=== PATIENT | female | born 1975 | race Caucasian/White ===

== ENCOUNTER 2017-03-01 16:02 | Emergency (ER) | payer MEDICAID ==
[2017-03-01] MEDS ORDERED: Ketorolac 30 MG/ML SDV IVPUSH ONE (16:38)
--- NOTE | 2017-03-01 16:38 | EDM.PDOC ---
ED HPI GENERAL MEDICAL PROBLEM - General Chief Complaint: General Stated Complaint: FLU LIKE SYMPTOMS Time Seen by Provider: 03/01/17 16:14 Source of Information: Reports: Patient History Limitations: Reports: No Limitations - History of Present Illness INITIAL COMMENTS - FREE TEXT/NARRATIVE: HISTORY AND PHYSICAL: History of present illness: Patient is a 41-year-old female who presents to the emergency room complaints of flulike symptoms 2 weeks. She states she did see her primary care provider about 1 month ago who did prescribe antibiotics for a "right lung infection". States she did feel fine a week after completing her antibiotics, but within the last week her symptoms have returned. Her main concern today is that she is fatigued, body aches, and "feeling run down". States she is eating and drinking appropriately. Dr. Ang has ordered her a Holter monitor which she had removed on . This was ordered due to the fact that she has been having palpitations on and off for the last month and a half. States that she recorded up to 50 episodes per day. States "I don't know if it's because I'm so run down, but have been having more palpitations recently". Denies any fever, chills, chest pain, shortness of breath, abdominal pain, nausea, vomiting or diarrhea. Has received the [id number] influenza vaccine. Currently on menses, denies any possibility of . Review of systems: As per history of present illness and below otherwise all systems reviewed and negative. Past medical history: As per history of present illness and as reviewed below otherwise noncontributory. Surgical history: As per history of present illness and as reviewed below otherwise noncontributory. Social history: No reported history of drug or alcohol abuse. Family history: As per history of present illness and as reviewed below otherwise noncontributory. Physical exam: Gen.: Well-developed and well-nourished 41-year-old female. Alert and oriented. Appears nontoxic and in no acute distress. HEENT: Atraumatic, normocephalic, pupils reactive, negative for conjunctival pallor or scleral icterus, mucous membranes slightly dry/tacky, throat clear, neck supple, nontender, trachea midline. Lungs: Clear to auscultation, breath sounds equal bilaterally, chest nontender. Heart: S1S2, regular rate and rhythm with no overt murmurs. Abdomen: Soft, nondistended, nontender. Negative for masses or hepatosplenomegaly. Negative for costovertebral tenderness. Pelvis: Stable nontender. Genitourinary: Deferred. Rectal: Deferred. Extremities: Atraumatic, moves all extremities per self, negative for cords or calf pain. Neurovascular unremarkable. Neuro: Awake, alert, oriented. Cranial nerves II through XII unremarkable. Cerebellum unremarkable. Motor and sensory unremarkable throughout. Exam nonfocal. Lab results and x-ray are within normal limits. Did discuss with the patient to do supportive care at home as this is likely viral. Tylenol and/or ibuprofen as needed for pain management. Encourage fluids to prevent dehydration. Get plenty of rest. If symptoms continue please follow-up with your primary caregiver. Patient voices understanding and is agreeable to plan of care. She denies any further questions at this time. Diagnostics: CBC, CMP, Monospot, influenza, tsh, ekg, chest 1 view Therapeutics: IV fluid, Toradol Impression: Viral illness Plan: 1. All lab results and x-ray reading were normal. Symptoms are likely viral. Please continue with supportive care: Tylenol and or ibuprofen as needed for pain management. Encourage fluids to prevent dehydration. Get plenty of rest. 2. Follow-up with your primary caregiver in the next 1-2 days. Return to the ED as needed and as discussed. Definitive disposition and diagnosis as appropriate pending reevaluation and review of above. Duration: Week(s): - Related Data Allergies Allergy/AdvReac Type Severity Reaction Status Date / Time Sulfa (Sulfonamide Allergy Hives Verified 02/07/15 18:43 Antibiotics) Home Meds: Home Meds . [No Known Home Meds] 03/01/17 [History] Past Medical History - Past Health History Medical/Surgical History: Denies Medical/Surgical History Social & Family History - Tobacco Use Smoking Status *Q: Former Smoker Years of Tobacco use: 20 Used Tobacco, but Quit: Yes Month Tobacco Last Used: 10/2013 Second Hand Smoke Exposure: No - Recreational Drug Use Recreational Drug Use: No ED ROS GENERAL - Review of Systems Review Of Systems: See Below ED EXAM, GENERAL - Physical Exam Exam: See Below (See dictation) EKG INTERPRETATION EKG Date: 03/01/17 Rhythm: NSR Comparison: NA - No Prior EKG EKG Interpretation Comments: As reviewed by me and Dr. Farah. Normal sinus rhythm. Course - Vital Signs Last Recorded V/S: Last Vital Signs Temp 98.6 F 03/01/17 16:21 Pulse 70 03/01/17 16:58 Resp 18 03/01/17 16:58 BP 107/62 03/01/17 16:58 Pulse Ox 97 03/01/17 16:21 - Orders/Labs/Meds Orders: Active Orders 24 hr Category Date Time Status EKG Documentation Completion [RC] STAT Care 03/01/17 16:38 Active Chest 1V Frontal [CR] Stat Exams 03/01/17 16:38 Taken Sodium Chloride 0.9% [Normal Saline] 1,000 ml Med 03/01/17 16:45 Active IV ASDIRECTED Medication Orders Sodium Chloride (Normal Saline) 1,000 mls @ 999 mls/hr IV ASDIRECTED EVER Last Admin: 03/01/17 16:50 Dose: 999 mls/hr Labs: Laboratory Tests 03/01/17 03/01/17 03/01/17 Range/Units 16:45 16:45 16:45 WBC 7.96 (4.0-11.0) K/uL RBC 3.95 L (4.30-5.90) M/uL Hgb 12.6 (12.0-16.0) g/dL Hct 37.6 (36.0-46.0) % MCV 95.2 (80.0-98.0) fL MCH 31.9 (27.0-32.0) pg MCHC 33.5 (31.0-37.0) g/dL RDW Std Deviation 42.6 (28.0-62.0) fl RDW Coeff of Katie 12 (11.0-15.0) % Plt Count 284 (150-400) K/uL MPV 10.70 (7.40-12.00) fL Neut % (Auto) 54.1 (48.0-80.0) % Lymph % (Auto) 33.7 (16.0-40.0) % [place] % (Auto) 8.5 (0.0-15.0) % Eos % (Auto) 3.4 (0.0-7.0) % Baso % (Auto) 0.3 (0.0-1.5) % Neut # (Auto) 4.3 (1.4-5.7) K/uL Lymph # (Auto) 2.7 H (0.6-2.4) K/uL [place] # (Auto) 0.7 (0.0-0.8) K/uL Eos # (Auto) 0.3 (0.0-0.7) K/uL Baso # (Auto) 0.0 (0.0-0.1) K/uL Nucleated RBC % 0.0 /100WBC Nucleated RBCs # 0 K/uL Sodium 139 (136-146) mmol/L Potassium 4.0 (3.5-5.1) mmol/L Chloride 107 (98-110) mmol/L Carbon Dioxide 23 (21-31) mmol/L BUN 21 (6.0-23.0) mg/dL Creatinine 0.8 (0.6-1.5) mg/dL Est Cr Clr Drug Dosing 77.33 mL/min Estimated GFR (MDRD) > 60.0 ml/min Glucose 95 (60-110) mg/dL Calcium 9.2 (8.8-10.8) mg/dL Total Bilirubin 0.4 (0.1-1.5) mg/dL AST 18 (5-40) IU/L ALT 19 (8-54) IU/L Alkaline Phosphatase 67 (40-150) Total Protein 7.1 (6.0-8.0) g/dL Albumin 4.0 (3.5-5.0) g/dL Globulin 3.1 (2.0-3.5) g/dL Albumin/Globulin Ratio 1.3 (1.3-2.8) TSH 3rd Generation 0.50 (0.47-5.0) uIU/mL Monoscreen NEGATIVE (NEG) Meds: Medications Generic Name Dose Route Start Last Admin Trade Name Freq PRN Reason Stop Dose Admin Sodium Chloride 1,000 mls @ 999 mls/hr 03/01/17 16:45 03/01/17 16:50 Normal Saline IV 999 mls/hr ASDIRECTED EVER Administration Discontinued Medications Generic Name Dose Route Start Last Admin Trade Name Freq PRN Reason Stop Dose Admin Ketorolac Tromethamine 30 mg 03/01/17 16:38 03/01/17 16:51 Toradol IVPUSH 03/01/17 16:39 30 mg ONETIME ONE Administration Departure - Departure Time of Disposition: 18:03 Disposition: Home, Self-Care 01 Clinical Impression: Viral illness - Discharge Information Referrals: Michelle Ang MD [Primary Care Provider] - Forms: ED Department Discharge Additional Instructions: My general discharge The following information is given to patients seen in the emergency department who are being discharged to home. This information is to outline your options for follow-up care. We provide all patients seen in our emergency department with a follow-up referral. The need for follow-up, as well as the timing and circumstances, are variable depending upon the specifics of your emergency department visit. If you don't have a primary care physician on staff, we will provide you with a referral. We always advise you to contact your personal physician following an emergency department visit to inform them of the circumstance of the visit and for follow-up with them and/or the need for any referrals to a consulting specialist. The emergency department will also refer you to a specialist when appropriate. This referral assures that you have the opportunity for follow-up care with a specialist. All of these measure are taken in an effort to provide you with optimal care, which includes your follow-up. Under all circumstances we always encourage you to contact your private physician who remains a resource for coordinating your care. When calling for follow-up care, please make the office aware that this follow-up is from your recent emergency room visit. If for any reason you are refused follow-up, please contact the Emergency Department at and asked to speak to the emergency department charge nurse. Primary Care [address] [place] [id number] 1. All lab results and x-ray reading were normal. Symptoms are likely viral. Please continue with supportive care: Tylenol and or ibuprofen as needed for pain management. Encourage fluids to prevent dehydration. Get plenty of rest. 2. Follow-up with your primary caregiver in the next 1-2 days. Return to the ED as needed and as discussed. - My Orders Last 24 Hours: My Active Orders 03/01/17 16:38 EKG Documentation Completion [RC] STAT Chest 1V Frontal [CR] Stat 03/01/17 16:45 Sodium Chloride 0.9% [Normal Saline] 1,000 ml IV ASDIRECTED - Assessment/Plan Last 24 Hours: My Active Orders 03/01/17 16:38 EKG Documentation Completion [RC] STAT Chest 1V Frontal [CR] Stat 03/01/17 16:45 Sodium Chloride 0.9% [Normal Saline] 1,000 ml IV ASDIRECTED
[2017-03-01] MEDS ORDERED: Sodium Chloride 0.9% 1,000 ML IV SCH (16:45)
[2017-03-01 17:03] VITALS: BP 107/62
[2017-03-01 17:15] LABS: CHLORIDE,CL 107 mmol/L (98-110); SODIUM,NA 139 mmol/L (136-146)
--- NOTE | 2017-03-02 10:56 | CR ---
EXAM DATE: 03/01/17 PATIENT'S AGE: 41 Patient: BRUNA FISH Facility: [place], [place] Site . Site : [id number] Study: XRay Chest [id number]/[id number] 5:47:28 PM Ordering Physician: Doctor Martinez Final Report: INDICATION: Dry cough, fatigue, weakness, congestion, shortness of breath x2 days TECHNIQUE: Chest 1 view. COMPARISON: None FINDINGS: Cardiovascular and mediastinum: Heart size and vasculature are normal in caliber and appearance. Mediastinum is within normal limits. Lungs and pleural space: Lungs are clear. No sign of infiltrate or mass. No sign of pleural effusion. No pneumothorax. Bones and soft tissues: No significant findings. IMPRESSION: Unremarkable chest. No evidence for pneumonia. Dictated by Geovanni Damico MD @ Mar 01 2017 6:01PM (Electronic Signature) Report Signed by Proxy. NADINE
== END 2017-03-01 18:20 | disposition home or self-care (01) ==
LOC: MW.ED 16:02
DX: B34.9 Viral infection, unspecified (principal); Z88.2 Allergy status to sulfonamides; Z87.891 Personal history of nicotine dependence
CPT/HCPCS: 36415; 71010; 80053; 84443; 85025; 86308; 87804; 93005; 96361; 96374; 99284; J1885; J7040

== ENCOUNTER 2017-12-22 19:05 | Emergency (ER) | payer MEDICAID ==
--- NOTE | 2017-12-22 19:45 | EDM.PDOC ---
ED HPI GENERAL MEDICAL PROBLEM - General Chief Complaint: General Stated Complaint: PT HEAD CONGESTED Time Seen by Provider: 12/22/17 19:07 Source of Information: Reports: Patient History Limitations: Reports: No Limitations - History of Present Illness INITIAL COMMENTS - FREE TEXT/NARRATIVE: HISTORY AND PHYSICAL: History of present illness: Patient is a 42-year-old female who presents to the emergency room with complaints of bilateral ear pain, throat pain and sinus pressure/pain 5-6 days. She states she has tried multiple [id number] products and has not found any relief. She has an intermittent chills and a subjective fever. Chest pain, shortness of breath, cough. Denies any abdominal pain, nausea, vomiting, diarrhea or constipation. She has been eating and drinking appropriately. Review of systems: As per history of present illness and below otherwise all systems reviewed and negative. Past medical history: As per history of present illness and as reviewed below otherwise noncontributory. Surgical history: As per history of present illness and as reviewed below otherwise noncontributory. Social history: No reported history of drug or alcohol abuse. Family history: As per history of present illness and as reviewed below otherwise noncontributory. Physical exam: General: Well-developed and well-nourished 42-year-old female. Alert and oriented. Nontoxic appearing and in no acute distress. HEENT: Atraumatic, normocephalic, pupils equal and reactive bilaterally, negative for conjunctival pallor or scleral icterus, frontal maxillary sinus pressure and tenderness to palpation bilaterally, TMs normal bilaterally, mucous membranes moist, throat clear, neck supple, nontender, trachea midline. No drooling or trismus noted. No meningeal signs Lungs: Clear to auscultation, breath sounds equal bilaterally, chest nontender. Heart: S1S2, regular rate and rhythm without overt murmur Abdomen: Soft, nondistended, nontender. Negative for masses or hepatosplenomegaly. Negative for costovertebral tenderness. Pelvis: Stable nontender. Genitourinary: Deferred. Rectal: Deferred. Skin: Intact, warm, dry. No lesions or rashes noted. Extremities: Atraumatic, negative for cords or calf pain. Neurovascular unremarkable. Neuro: Awake, alert, oriented. Cranial nerves II through XII unremarkable. Cerebellum unremarkable. Motor and sensory unremarkable throughout. Exam nonfocal. Notes: Due to the patient's physical examination and longevity of symptoms I will treat her with Augmentin. Supportive care measures were reviewed and discussed. She voices understanding and is agreeable to plan of care. Denies any further questions or concerns at this time. Diagnostics: None Therapeutics: None Prescription: Augmentin Impression: Sinusitis Plan: Please take your medications as prescribed Follow-up with your primary caregiver in the next 1-2 days. Return to the ED as needed and as discussed. Definitive disposition and diagnosis as appropriate pending reevaluation and review of above. body Pain Score (Numeric/FACES): 6 - Related Data Allergies Allergy/AdvReac Type Severity Reaction Status Date / Time Sulfa (Sulfonamide Allergy Hives Verified 12/22/17 19:17 Antibiotics) Home Meds: Home Meds Amoxicillin/Clavulanate K [Augmentin 875-125 MG] 1 tab PO BID 10 Days #20 tablet 12/22/17 [Rx] Codeine/Promethazine [Phenergan with Codeine] 5 ml PO Q6HR PRN #1 bottle [Rx] Past Medical History - Past Health History Medical/Surgical History: Denies Medical/Surgical History Social & Family History - Family History Family Medical History: Noncontributory - Tobacco Use Smoking Status *Q: Never Smoker - Caffeine Use Caffeine Use: Reports: Coffee, Soda - Recreational Drug Use Recreational Drug Use: No ED ROS GENERAL - Review of Systems Review Of Systems: ROS reveals no pertinent complaints other than HPI. ED EXAM, GENERAL - Physical Exam Exam: See Below (See dictation) Course - Vital Signs Last Recorded V/S: Last Vital Signs Temp 97.7 F 12/22/17 19:05 Pulse 68 12/22/17 19:05 Resp 18 12/22/17 19:05 BP 122/68 12/22/17 19:05 Pulse Ox 99 12/22/17 19:05 Departure - Departure Time of Disposition: 19:44 Disposition: Home, Self-Care 01 Clinical Impression: Sinusitis Qualifiers: Sinusitis location: maxillary Chronicity: acute Recurrence: non-recurrent Qualified Code(s): J01.00 - Acute maxillary sinusitis, unspecified - Discharge Information Prescriptions: Codeine/Promethazine [Phenergan with Codeine] 5 ml PO Q6HR PRN #1 bottle PRN Reason: Pain Amoxicillin/Clavulanate K [Augmentin 875-125 MG] 1 tab PO BID 10 Days #20 tablet Instructions: Sinusitis, Adult, [id number] Referrals: PCP,None [Primary Care Provider] - Forms: ED Department Discharge Additional Instructions: The following information is given to patients seen in the emergency department who are being discharged to home. This information is to outline your options for follow-up care. We provide all patients seen in our emergency department with a follow-up referral. The need for follow-up, as well as the timing and circumstances, are variable depending upon the specifics of your emergency department visit. If you don't have a primary care physician on staff, we will provide you with a referral. We always advise you to contact your personal physician following an emergency department visit to inform them of the circumstance of the visit and for follow-up with them and/or the need for any referrals to a consulting specialist. The emergency department will also refer you to a specialist when appropriate. This referral assures that you have the opportunity for follow-up care with a specialist. All of these measure are taken in an effort to provide you with optimal care, which includes your follow-up. Under all circumstances we always encourage you to contact your private physician who remains a resource for coordinating your care. When calling for follow-up care, please make the office aware that this follow-up is from your recent emergency room visit. If for any reason you are refused follow-up, please contact the [facility] Emergency Department at and asked to speak to the emergency department charge nurse. [facility] [address] [place] [id number] Please take your medications as prescribed Follow-up with your primary caregiver in the next 1-2 days. Return to the ED as needed and as discussed.
[2017-12-22 20:38] VITALS: BP 120/64
== END 2017-12-22 19:50 | disposition home or self-care (01) ==
LOC: MW.ED 19:05
DX: J01.00 Acute maxillary sinusitis, unspecified (principal); Z88.2 Allergy status to sulfonamides
CPT/HCPCS: 99282; 99283

== ENCOUNTER 2018-05-04 19:01 | Emergency (ER) | payer SELFPAY ==
--- NOTE | 2018-05-04 20:01 | EDM.PDOC ---
ED HPI GENERAL MEDICAL PROBLEM - General Chief Complaint: General Stated Complaint: PT HAS BODY PAIN Time Seen by Provider: 05/04/18 19:27 Source of Information: Reports: Patient History Limitations: Reports: No Limitations - History of Present Illness INITIAL COMMENTS - FREE TEXT/NARRATIVE: HISTORY AND PHYSICAL: History of present illness: Patient is a 42-year-old female who presents to the emergency room today with a week long complaint of sinus pain, sore throat, ear pain, headache, and body aches. Patient states that 3-4 days ago she went to an outpatient clinic and was given Zpak has been taking this regularly without improvement of symptoms. Patient states that when she went into the clinic they did not perform any tests that she had a sinus infection. Patient has also been using Flonase for her symptoms without relief. Patient denies fever, chills, shortness of breath, difficulties breathing, cough , chest pain, vomiting, change in bowel habits, or any other GI or symptoms. Patient denies any health history. Review of systems: As per history of present illness and below otherwise all systems reviewed and negative. Past medical history: As per history of present illness and as reviewed below otherwise noncontributory. Surgical history: As per history of present illness and as reviewed below otherwise noncontributory. Social history: See social history for further information Family history: As per history of present illness and as reviewed below otherwise noncontributory. Physical exam: General: Patient is alert, oriented, and in no acute distress. She is sitting comfortably on exam table. HEENT: Atraumatic, normocephalic, pupils equal and reactive bilaterally, negative for conjunctival pallor or scleral icterus, mucous membranes moist, TMs normal bilaterally but patient expresses moderate amount of pain during ear exam, throat is mildly erythematous without exudate, neck supple, nontender, trachea midline. No drooling or trismus noted. Mild pain to palpation of the maxillary sinuses bilat. No meningeal signs. No hot potato voice noted. Lungs: Clear to auscultation, breath sounds equal bilaterally, chest nontender. Heart: S1S2, regular rate and rhythm without overt murmur Abdomen: Soft, nondistended, nontender. Negative for masses or hepatosplenomegaly. Negative for costovertebral tenderness. Pelvis: Stable nontender. Genitourinary: Deferred. Rectal: Deferred. Skin: Intact, warm, dry. No lesions or rashes noted. Extremities: Atraumatic, negative for cords or calf pain. Neurovascular unremarkable. Neuro: Awake, alert, oriented. Cranial nerves II through XII unremarkable. Cerebellum unremarkable. Motor and sensory unremarkable throughout. Exam nonfocal. Notes: On exam today patient does have a mildly erythematous oropharynx and mild pain to palpation of the maxillary sinuses. Her vitals today are reassuring. Strep and influenza test are negative today. Patient has been doing a Z-Virgil for sinus infection. We'll switch antibiotics to Augmentin for her proper treatment of sinus infection. Supportive care measures were reviewed and discussed. She voices understanding and is agreeable to plan of care. Denies any further questions or concerns at this time. Diagnostics: Strep, influenza, Therapeutics: None Prescription: Augmentin Impression: Acute sinusitis Plan: 1. Standard contact precautions (covering mouth while coughing, avoid sharing drinking cups and eating utensils). Please make sure you're doing good handwashing as this is contagious. 2. Please stop the azithromycin as we discussed and start the Augmentin. 3. Continue to use Flonase [id number]. 4. Supportive care measures such as Tylenol and/or ibuprofen for pain and fever management. Encourage small frequent sips of fluids to prevent dehydration. 5. Follow-up with your primary care provider in the next 1-2 days. Return to the ED as needed and as discussed. Definitive disposition and diagnosis as appropriate pending reevaluation and review of above. head and neck Pain Score (Numeric/FACES): 7 - Related Data Allergies Allergy/AdvReac Type Severity Reaction Status Date / Time Sulfa (Sulfonamide Allergy Hives Verified 02/17/18 13:28 Antibiotics) Home Meds: Home Meds Amoxicillin/Clavulanate K [Augmentin 875-125 MG] 1 tab PO BID 10 Days #20 tablet 05/04/18 [Rx] Past Medical History - Past Health History Medical/Surgical History: Denies Medical/Surgical History - Infectious Disease History Infectious Disease History: Reports: Chicken Pox Social & Family History - Family History Family Medical History: Noncontributory - Caffeine Use Caffeine Use: Reports: Coffee, Soda, Tea ED ROS GENERAL - Review of Systems Review Of Systems: ROS reveals no pertinent complaints other than HPI. ED EXAM, GENERAL - Physical Exam Exam: See Below (see Dictation) Course - Vital Signs Last Recorded V/S: Last Vital Signs Temp 97.5 F 05/04/18 19:46 Pulse 81 05/04/18 19:46 Resp 18 05/04/18 19:46 BP 124/69 05/04/18 19:46 Pulse Ox 98 05/04/18 19:46 - Orders/Labs/Meds Orders: Active Orders 24 hr Category Date Time Status CULTURE STREP A CONFIRMATION [] Stat Lab 05/04/18 20:07 Results STREP SCRN A RAPID W CULT CONF [] Stat Lab 05/04/18 20:01 Ordered Departure - Departure Time of Disposition: 20:40 Disposition: Home, Self-Care 01 Clinical Impression: Acute sinusitis Qualifiers: Sinusitis location: maxillary Recurrence: not specified as recurrent Qualified Code(s): J01.00 - Acute maxillary sinusitis, unspecified - Discharge Information Prescriptions: Amoxicillin/Clavulanate K [Augmentin 875-125 MG] 1 tab PO BID 10 Days #20 tablet Instructions: Sinusitis, Adult, [id number] Referrals: PCP,None [Primary Care Provider] - Forms: ED Department Discharge Additional Instructions: The following information is given to patients seen in the emergency department who are being discharged to home. This information is to outline your options for follow-up care. We provide all patients seen in our emergency department with a follow-up referral. The need for follow-up, as well as the timing and circumstances, are variable depending upon the specifics of your emergency department visit. If you don't have a primary care physician on staff, we will provide you with a referral. We always advise you to contact your personal physician following an emergency department visit to inform them of the circumstance of the visit and for follow-up with them and/or the need for any referrals to a consulting specialist. The emergency department will also refer you to a specialist when appropriate. This referral assures that you have the opportunity for follow-up care with a specialist. All of these measure are taken in an effort to provide you with optimal care, which includes your follow-up. Under all circumstances we always encourage you to contact your private physician who remains a resource for coordinating your care. When calling for follow-up care, please make the office aware that this follow-up is from your recent emergency room visit. If for any reason you are refused follow-up, please contact the [facility] Emergency Department at and asked to speak to the emergency department charge nurse. [facility] [address] [place] [address] [address] 1. Standard contact precautions (covering mouth while coughing, avoid sharing drinking cups and eating utensils). Please make sure you're doing good handwashing as this is contagious. 2. Please stop the azithromycin as we discussed and start the Augmentin. 3. Continue to use Flonase [id number]. 4. Supportive care measures such as Tylenol and/or ibuprofen for pain and fever management. Encourage small frequent sips of fluids to prevent dehydration. 5. Follow-up with your primary care provider in the next 1-2 days. Return to the ED as needed and as discussed. - My Orders Last 24 Hours: My Active Orders 05/04/18 20:01 STREP SCRN A RAPID W CULT CONF [RM] Stat 05/04/18 20:07 CULTURE STREP A CONFIRMATION [] Stat - Assessment/Plan Last 24 Hours: My Active Orders 05/04/18 20:01 STREP SCRN A RAPID W CULT CONF [RM] Stat 05/04/18 20:07 CULTURE STREP A CONFIRMATION [] Stat
[2018-05-04 23:12] VITALS: BP 116/47
== END 2018-05-04 21:09 | disposition home or self-care (01) ==
LOC: MW.ED 19:01
DX: J01.00 Acute maxillary sinusitis, unspecified (principal); Z88.2 Allergy status to sulfonamides
CPT/HCPCS: 87081; 87804; 87880-QW; 99283

== ENCOUNTER 2018-09-25 21:23 | Emergency (ER) | payer MEDICAID, SELFPAY ==
--- NOTE | 2018-09-25 22:27 | EDM.PDOC ---
ED HPI GENERAL MEDICAL PROBLEM - General Chief Complaint: Wound Recheck Stated Complaint: PT HAS STOMACH PAIN Time Seen by Provider: 09/25/18 21:55 Source of Information: Reports: Patient History Limitations: Reports: No Limitations - History of Present Illness INITIAL COMMENTS - FREE TEXT/NARRATIVE: HISTORY AND PHYSICAL: History of present illness: Patient is a 42-year-old female presents to the ED today with concern of redness and drainage from an incision site just below her umbilicus. Patient states she had a bilateral tubal ligation for sterilization purposes done approximately one month ago by Dr. Proctor. Patient states starting yesterday she had noticed some redness of the incision that is below her umbilicus. Patient states starting today it started to drain pus. Patient states she does have abdominal pain which is worse when she is moving and better when she is at rest. Patient denies fever, chills, chest pain, shortness of breath, or cough. Denies headache, neck stiff ness, change in vision, syncope, or near syncope. Denies nausea, vomiting, diarrhea, constipation, or dysuria. Has not noted any blood in urine or stool. Patient has been eating and drinking appropriately. Review of systems: As per history of present illness and below otherwise all systems reviewed and negative. Past medical history: As per history of present illness and as reviewed below otherwise noncontributory. Surgical history: As per history of present illness and as reviewed below otherwise noncontributory. Social history: See social history for further information Family history: As per history of present illness and as reviewed below otherwise noncontributory. Physical exam: General: Patient is alert, oriented, and in no acute distress. Patient sitting comfortably on exam table. HEENT: Atraumatic, normocephalic, pupils equal and reactive bilaterally, negative for conjunctival pallor or scleral icterus, mucous membranes moist, TMs normal bilaterally, throat clear, neck supple, nontender, trachea midline. No drooling or trismus noted. No meningeal signs. No hot potato voice noted. Lungs: Clear to auscultation, breath sounds equal bilaterally, chest nontender. Heart: S1S2, regular rate and rhythm without overt murmur Abdomen: Soft, nondistended. Negative for masses or hepatosplenomegaly. Negative for costovertebral tenderness. There is an incision just inferior to the umbilicus that has a 2cm circular area of erythema surrounding with savanna pus drainage. This area is moderately painful to palpation. Other incision sites appear non infected and healing appropriately. Pelvis: Stable nontender. Genitourinary: Deferred. Rectal: Deferred. Skin: Intact, warm, dry. No lesions or rashes noted. Extremities: Atraumatic, negative for cords or calf pain. Neurovascular unremarkable. Neuro: Awake, alert, oriented. Cranial nerves II through XII unremarkable. Cerebellum unremarkable. Motor and sensory unremarkable throughout. Exam nonfocal. Notes: Dr. Yandel Pinedo, OBGYN television service engineer for [facility], was consulted on patient, per her request patient is to be placed on amoxicillin and to call the clinic tomorrow for follow-up with Dr. Proctor. Discussed this with patient. Voices understanding and is agreeable to plan of care. Denies any further questions or concerns at this time. Diagnostics: CBC, CMP, UA, Abd/Pelvic CT, wound culture Therapeutics: None Prescription: Amoxicillin (Per Dr. Humphries Request) Impression: Localized infection of surgical site incision Plan: 1. Take medication as prescribed. You can alternate ibuprofen and Tylenol as checked her for pain and discomfort. 2. Call [facility] in the morning to schedule follow-up with Dr. Proctor. Number has been provided for you above. 3. Return to the ED as needed and as discussed. Definitive disposition and diagnosis as appropriate pending reevaluation and review of above. - Related Data Allergies Allergy/AdvReac Type Severity Reaction Status Date / Time Sulfa (Sulfonamide Allergy Hives Verified 09/25/18 21:30 Antibiotics) Home Meds: Home Meds Multivitamin [Multivitamins] 1 tab PO DAILY 09/25/18 [History] Past Medical History - Past Health History Medical/Surgical History: Denies Medical/Surgical History [employer] History: Reports: Endocrine/Metabolic History: Reports: Obesity/BMI 30+ - Infectious Disease History Infectious Disease History: Reports: Chicken Pox - Past Surgical History HEENT Surgical History: Reports: Tonsillectomy Female Surgical History: Reports: Section, Salpingo-Oophorectomy Other Female Surgeries/Procedures: Laparoscopy Social & Family History - Family History Family Medical History: Noncontributory - Tobacco Use Smoking Status *Q: Current Every Day Smoker Years of Tobacco use: 8 Packs/Tins Daily: 1 - Caffeine Use Caffeine Use: Reports: Coffee, Soda, Tea - Recreational Drug Use Recreational Drug Use: No ED ROS GENERAL - Review of Systems Review Of Systems: ROS reveals no pertinent complaints other than HPI. ED EXAM, GENERAL - Physical Exam Exam: See Below (see dictation) Course - Vital Signs Last Recorded V/S: Last Vital Signs Temp 36.6 C 09/25/18 21:30 Pulse 84 09/25/18 22:53 Resp 16 09/25/18 22:53 BP 122/76 09/25/18 22:53 Pulse Ox 97 09/25/18 22:53 - Orders/Labs/Meds Orders: Active Orders 24 hr Category Date Time Status CULTURE WOUND [RM] Stat Lab 09/25/18 22:00 Received Labs: Laboratory Tests 09/25/18 09/25/18 09/25/18 Range/Units 22:24 22:24 22:24 WBC 11.86 H (4.0-11.0) K/uL RBC 4.38 (4.30-5.90) M/uL Hgb 13.8 (12.0-16.0) g/dL Hct 41.6 (36.0-46.0) % MCV 95.0 (80.0-98.0) fL MCH 31.5 (27.0-32.0) pg MCHC 33.2 (31.0-37.0) g/dL RDW Std Deviation 41.9 (28.0-62.0) fl RDW Coeff of Katie 12 (11.0-15.0) % Plt Count 174 (150-400) K/uL MPV 10.60 (7.40-12.00) fL Neut % (Auto) 59.1 (48.0-80.0) % Lymph % (Auto) 29.7 (16.0-40.0) % Routt % (Auto) 8.8 (0.0-15.0) % Eos % (Auto) 2.2 (0.0-7.0) % Baso % (Auto) 0.2 (0.0-1.5) % Neut # (Auto) 7.0 H (1.4-5.7) K/uL Lymph # (Auto) 3.5 H (0.6-2.4) K/uL Routt # (Auto) 1.0 H (0.0-0.8) K/uL Eos # (Auto) 0.3 (0.0-0.7) K/uL Baso # (Auto) 0.0 (0.0-0.1) K/uL Nucleated RBC % 0.0 /100WBC Nucleated RBCs # 0 K/uL Sodium 141 (136-145) mmol/L Potassium 4.2 (3.5-5.1) mmol/L Chloride 105 (98-107) mmol/L Carbon Dioxide 23.7 (21.0-32.0) mmol/L BUN 13 (7.0-18.0) mg/dL Creatinine 0.8 (0.6-1.0) mg/dL Est Cr Clr Drug Dosing 76.55 mL/min Estimated GFR (MDRD) > 60.0 ml/min Glucose 78 (74-106) mg/dL Calcium 8.7 (8.5-10.1) mg/dL Total Bilirubin 0.4 (0.2-1.0) mg/dL AST 17 (15-37) IU/L ALT 28 (14-63) IU/L Alkaline Phosphatase 59 (46-116) U/L Total Protein 6.8 (6.4-8.2) g/dL Albumin 3.7 (3.4-5.0) g/dL Globulin 3.1 (2.6-4.0) g/dL Albumin/Globulin Ratio 1.2 (0.9-1.6) Urine Color YELLOW Urine Appearance CLEAR Urine pH 5.5 (5.0-8.0) Ur Specific Creole 1.020 (1.001-1.035) Urine Protein NEGATIVE (NEGATIVE) mg/dL Urine Glucose (UA) NEGATIVE (NEGATIVE) mg/dL Urine Ketones 40 H (NEGATIVE) mg/dL Urine Occult Blood TRACE-INTACT H (NEGATIVE) Urine Nitrite NEGATIVE (NEGATIVE) Urine Bilirubin SMALL H (NEGATIVE) Urine Ictotest NEGATIVE Urine Urobilinogen 0.2 (<2.0) EU/dL Ur Leukocyte Esterase NEGATIVE (NEGATIVE) Urine RBC NONE SEEN (0-2/HPF) Urine WBC 0-1 (0-5/HPF) Ur Squamous Epith Cells OCCASIONAL Urine Bacteria FEW (NEGATIVE) Urine Mucus LIGHT (NONE-MOD) Meds: Medications Discontinued Medications Generic Name Dose Route Start Last Admin Trade Name Freq PRN Reason Stop Dose Admin Iopamidol 100 ml 09/25/18 23:28 09/25/18 23:43 Isovue-370 (76%) IVPUSH 09/25/18 23:29 100 ml ONETIME ONE Administration Departure - Departure Time of Disposition: 00:08 Disposition: Home, Self-Care 01 Clinical Impression: Surgical site infection - Discharge Information Referrals: Melodie Proctor MD [Primary Care Provider] - Forms: ED Department Discharge Additional Instructions: The following information is given to patients seen in the emergency department who are being discharged to home. This information is to outline your options for follow-up care. We provide all patients seen in our emergency department with a follow-up referral. The need for follow-up, as well as the timing and circumstances, are variable depending upon the specifics of your emergency department visit. If you don't have a primary care physician on staff, we will provide you with a referral. We always advise you to contact your personal physician following an emergency department visit to inform them of the circumstance of the visit and for follow-up with them and/or the need for any referrals to a consulting specialist. The emergency department will also refer you to a specialist when appropriate. This referral assures that you have the opportunity for follow-up care with a specialist. All of these measure are taken in an effort to provide you with optimal care, which includes your follow-up. Under all circumstances we always encourage you to contact your private physician who remains a resource for coordinating your care. When calling for follow-up care, please make the office aware that this follow-up is from your recent emergency room visit. If for any reason you are refused follow-up, please contact the [facility] Emergency Department at and asked to speak to the emergency department charge nurse. [facility] [address] [place] [address] [facility] [address] [place] [id number] [facility] [address] [place] [address] 1. Take medication as prescribed. You can alternate ibuprofen and Tylenol as checked her for pain and discomfort. 2. Call [facility] in the morning to schedule follow-up with Dr. Proctor. Number has been provided for you above. 3. Return to the ED as needed and as discussed. - My Orders Last 24 Hours: My Active Orders 09/25/18 22:00 CULTURE WOUND [RM] Stat - Assessment/Plan Last 24 Hours: My Active Orders 09/25/18 22:00 CULTURE WOUND [RM] Stat
[2018-09-25 22:53] VITALS: BP 122/76
[2018-09-25 23:22] LABS: CHLORIDE,CL 105 mmol/L (98-107); SODIUM,NA 141 mmol/L (136-145)
[2018-09-25] MEDS ORDERED: Iopamidol 755 Mg/ML 100 ML Bottle IVPUSH ONE (23:28)
--- NOTE | 2018-09-26 00:03 | CT ---
INDICATION: S/p incision, purulent drainage inferior to the umbilicus. TECHNIQUE: CT abdomen and pelvis acquired with 100 cc Isovue 370 intravenous contrast. COMPARISON: None. FINDINGS: Lower chest: Unremarkable. Liver: Unremarkable. Normal in size and attenuation. No masses. Gallbladder and bile ducts: Unremarkable. No stones or inflammation. No biliary dilatation. Pancreas: Unremarkable. No mass or inflammation. Spleen: Unremarkable. Normal in size. No masses. Adrenal glands: Unremarkable. No nodules. Kidneys: Unremarkable. No masses, stones, or hydronephrosis. GI tract: The stomach is unremarkable. No dilated loops of large or small intestine. Appendix unremarkable. Low right fat containing spigelian hernia. Vasculature: Unremarkable. Pelvis: Uterus anteverted. Bladder unremarkable. Dominant follicle right ovary measuring 14 millimeters. Bones: Unremarkable for age. Other: No subcutaneous fluid collection. Slight fat stranding in the region of the umbilicus. IMPRESSION: 1. Slight fat stranding in the region of the umbilicus consistent with the given history of incision. No subcutaneous abscess or intraperitoneal involvement. 2. Incidental low right fat containing spigelian hernia. Please note that all CT scans at this facility use dose modulation, iterative reconstruction, and/or weight-based dosing when appropriate to reduce radiation dose to as low as reasonably achievable. Dictated by Edward Paula MD @ Sep 25 2018 11:55PM Signed by Dr. Edward Paula @ Sep 26 2018 12:01AM
== END 2018-09-26 00:41 | disposition home or self-care (01) ==
LOC: MW.ED 21:23
DX: R07.9 Chest pain, unspecified (principal); I10 Essential (primary) hypertension
CPT/HCPCS: 36415; 74177; 80053; 81001; 85025; 87070; 99283; Q9967; 99284

== ENCOUNTER 2020-02-20 07:16 | Day surgery (SDC) | payer OTHER ==
[~2020-02-20 07:16] MED LIST: Lactated Ringers 1,000 ML IV SCH; Sodium Chloride 0.9% 10 ML SDV IV PRN; Sodium Chloride 0.9% 10 ML Syringe FLUSH PRN; Sodium Chloride 0.9% 2.5 ML Syringe FLUSH PRN; ceFAZolin 2 GM in Premix Bag 1 BAG IV ONE
--- NOTE | 2020-02-20 08:04 | PCM.PREANE ---
Preanesthetic Assessment - Anesthesia/Transfusion/Family Hx Anesthesia History: Prior Anesthesia Without Reaction Family History of Anesthesia Reaction: No Transfusion History: No Prior Transfusion(s) - Review of Systems General: No Symptoms Pulmonary: No Symptoms Cardiovascular: No Symptoms Gastrointestinal: No Symptoms Neurological: No Symptoms Other: Reports: None - Physical Assessment NPO Status Date: 02/19/20 Vital Signs: Last Vital Signs Temp 98.4 F 02/20/20 07:29 Pulse 85 02/20/20 07:29 Resp 16 02/20/20 07:29 BP 125/62 02/20/20 07:29 Pulse Ox 96 02/20/20 07:29 Height: 5 ft 3 in Weight: 88.904 kg ASA Class: 2 Mental Status: Alert & Oriented x3 Airway Class: Mallampati = 2 Dentition: Reports: Normal Dentition ROM/Head Extension: Full Lungs: Clear to Auscultation, Normal Respiratory Effort Cardiovascular: Regular Rate, Regular Rhythm - Lab Values: Laboratory Last Values Urine HCG, Qual NEGATIVE (NEGATIVE) 02/20/20 07:26 - Allergies Allergies/Adverse Reactions: Allergies Allergy/AdvReac Type Severity Reaction Status Date / Time Sulfa (Sulfonamide Allergy Hives Verified 02/15/20 08:12 Antibiotics) - Anesthesia Plan Pre-Op Medication Ordered: None - Acknowledgements Anesthesia Type Planned: General Anesthesia Pt an Appropriate Candidate for the Planned Anesthesia: Yes Alternatives and Risks of Anesthesia Discussed w Pt/Guardian: Yes Pt/Guardian Understands and Agrees with Anesthesia Plan: Yes Additional Comments: PMH: asthma inactive for many months, migraines-non in 1 yr PLAN: get or ga/lma -- surgeons choice PreAnesthesia Questionnaire - Past Health History Medical/Surgical History: Denies Medical/Surgical History HEENT History: Reports: Other (See Below) Other HEENT History: wears glasses Cardiovascular History: Reports: Other (See Below) Other Cardiovascular History: palpatations Respiratory History: Reports: Asthma Other Respiratory History: seldom uses inhaler Gastrointestinal History: Reports: None Genitourinary History: Reports: None [employer] History: Reports: Musculoskeletal History: Reports: None Neurological History: Reports: Migraines Psychiatric History: Reports: None Endocrine/Metabolic History: Reports: Obesity/BMI 30+ Hematologic History: Reports: Other (See Below) Other Hematologic History: states had trouble controlling her bleeding following her c/section Immunologic History: Reports: None Oncologic (Cancer) History: Reports: None Dermatologic History: Reports: None - Infectious Disease History Infectious Disease History: Reports: Chicken Pox - Past Surgical History Head Surgeries/Procedures: Reports: None HEENT Surgical History: Reports: Tonsillectomy Cardiovascular Surgical History: Reports: None Respiratory Surgical History: Reports: None GI Surgical History: Reports: None Female Surgical History: Reports: Section, Cystectomy, Tubal Ligation Other Female Surgeries/Procedures: Laparoscopy with ovarian cystectomy Endocrine Surgical History: Reports: None Neurological Surgical History: Reports: None Musculoskeletal Surgical History: Reports: Other (See Below) Other Musculoskeletal Surgeries/Procedures:: cyst removed from foot Oncologic Surgical History: Reports: None Dermatological Surgical History: Reports: None - SUBSTANCE USE Tobacco Use Status *Q: Former Tobacco User Tobacco Use Within Last Twelve Months: No - HOME MEDS Home Medications: Home Meds Multivitamin [Multivitamins] 1 tab PO DAILY 09/25/18 [History] Albuterol Sulfate [Albuterol Sulfate Hfa] 1 - 2 puff INH ASDIRECTED PRN 02/15/20 [History] Magnesium Oxide [Magnesium] 600 mg PO DAILY 02/15/20 [History] Potassium Gluconate [Potassium] 99 mg PO DAILY 02/15/20 [History] Riboflavin (Vitamin B2) [Vitamin B-2] 400 mg PO DAILY 02/15/20 [History] SUMAtriptan succinate [Imitrex] 1 tab PO ASDIRECTED PRN 02/15/20 [History] Ubidecarenone [Coq-10] 300 mg PO DAILY 02/15/20 [History] - CURRENT (IN HOUSE) MEDS Current Meds: Current Medications Lactated Ringer's (Ringers, Lactated) 1,000 mls @ 125 mls/hr IV ASDIRECTED EVER Last Admin: 02/20/20 07:40 Dose: 125 mls/hr Documented by: Sodium Chloride (Saline Flush) 2.5 ml FLUSH ASDIRECTED PRN PRN Reason: Keep Vein Open Sodium Chloride (Normal Saline) 10 ml IV ASDIRECTED PRN PRN Reason: IV Use Sodium Chloride (Saline Flush) 10 ml FLUSH ASDIRECTED PRN PRN Reason: Keep Vein Open Discontinued Medications Cefazolin Sodium/Dextrose 2 gm (/ Premix) 50 mls @ 100 mls/hr IV ONETIME ONE Stop: 02/18/20 12:09
[2020-02-20] MEDS ORDERED: Bupivacaine 0.5% 30 ML SDV ONE (08:40)
[2020-02-20] MEDS ORDERED: fentaNYL 100 MCG/2 ML SDV ONE (09:29)
[2020-02-20] MEDS ORDERED: Propofol 200 MG/20 ML SDV ONE ×4 (09:29→11:30)
[2020-02-20] MEDS ORDERED: Ondansetron 4 MG/2 ML SDV ONE (09:29)
[2020-02-20] MEDS ORDERED: Ketorolac 30 MG/ML SDV ONE (09:29)
[2020-02-20] MEDS ORDERED: HYDROmorphone 2 MG/ML Syringe ONE (09:30)
[2020-02-20] MEDS ORDERED: Ketamine 500 mg/10 ML MDV ONE (09:30)
[2020-02-20] MEDS ORDERED: Midazolam 1 MG/ML 2 ML SDV ONE (09:30)
[2020-02-20] MEDS ORDERED: Rocuronium Bromide 50 MG/5 ML Syringe ONE ×2 (09:35→11:20)
[2020-02-20] MEDS ORDERED: Lidocaine 2% 5 ML SDV ONE (09:35)
--- NOTE | 2020-02-20 09:41 | PCM.SN.2 ---
- Free Text/Narrative Note: I met with the patient in the pre-operative area. After having a discussion with Dr. Jayson Soriano, I will start the hernia repair laparoscopically. This will help take down any adhesions on the underside of the abdominal wall and help me to identify the hernia defect. By identifying the hernia repair internally, I will be able to make a smaller incision on the skin. After this area is cleared away, I will repair the hernia with an open technique. This will likely require mesh. I discussed this with the patient. The consent is still for an incisional hernia repair. The risks are the same including bleeding, infection or damage to surrounding structures. She verbalized understanding and wishes to proceed.
[2020-02-20] MEDS ORDERED: Clindamycin Phosphate in D5W 600 MG in Premix Bag 1 BAG IV ONE ×2 (10:15)
[2020-02-20] MEDS ORDERED: Sugammadex Sodium 200 MG/2 ML VIAL ONE (11:21)
[2020-02-20] MEDS ORDERED: Octyl 2-Cyanoacrylate 1 Tube ONE (11:34)
[2020-02-20] MEDS ORDERED: ceFAZolin 1 GM Vial ONE (11:37)
--- NOTE | 2020-02-20 12:57 | PCM.OPNOTE ---
- General Post-Op/Procedure Note Date of Surgery/Procedure: 02/20/20 Operative Procedure(s): Laparoscopic and open incisional hernia repair, umbilical hernia repair Findings: 2cm in diameter incisional hernia in RLQ, weak inguinal internal ring, 5mm umbilical hernia Pre Op Diagnosis: incisional hernia, umbilical hernia Post-Op Diagnosis: same Anesthesia Technique: General ET Tube Primary Surgeon: Lia Mark Fluid Replacement, Intraop: 1,200 Output, Urine Amount: 70 EBL in mLs: 10 Condition: Good
--- NOTE | 2020-02-20 14:20 | PCM.POSTAN ---
POST ANESTHESIA ASSESSMENT - MENTAL STATUS Mental Status: Alert, Oriented - VITAL SIGNS Vital Signs: Last Vital Signs Temp 97.9 F 02/20/20 13:06 Pulse 78 02/20/20 14:00 Resp 14 02/20/20 14:00 BP 107/57 L 02/20/20 14:00 Pulse Ox 95 02/20/20 14:00 - RESPIRATORY Respiratory Status: Respiratory Rate WNL, Airway Patent, O2 Saturation Stable - CARDIOVASCULAR CV Status: Pulse Rate WNL, Blood Pressure Stable - GASTROINTESTINAL GI Status: No Symptoms - POST OP HYDRATION Hydration Status: Adequate & Stable
--- NOTE | 2020-02-20 14:22 | PCM48HPAN ---
Post Anesthesia Note - EVALUATION WITHIN 48HRS OF ANESTHETIC Vital Signs in Normal Range: Yes Patient Participated in Evaluation: Yes Respiratory Function Stable: Yes Airway Patent: Yes Cardiovascular Function Stable: Yes Hydration Status Stable: Yes Pain Control Satisfactory: Yes Nausea and Vomiting Control Satisfactory: Yes Mental Status Recovered: Yes Vital Signs: Last Vital Signs Temp 97.9 F 02/20/20 13:06 Pulse 78 02/20/20 14:00 Resp 14 02/20/20 14:00 BP 107/57 L 02/20/20 14:00 Pulse Ox 95 02/20/20 14:00
[2020-02-20 15:02] VITALS: BP 112/57; PULSE 80
[2020-02-20] MEDS ORDERED: Acetaminophen/oxyCODONE 325-5 MG Tab PO ONE (15:49)
--- NOTE | 2020-02-20 18:19 | OR ---
SURGEON: LIA FERREIRA MD DATE OF PROCEDURE: 02/20/2020 PREOPERATIVE DIAGNOSES: 1. Incisional hernia. 2. Umbilical hernia. POSTOPERATIVE DIAGNOSES: 1. Incisional hernia. 2. Umbilical hernia. PROCEDURES PERFORMED: Laparoscopic and open repair of incisional hernia, umbilical hernia repair. PRIMARY SURGEON: Lia Ferreira MD SECONDARY SURGEON: Jayson Soriano MD ANESTHESIA: General endotracheal anesthesia. FLUIDS: 1200 mL of crystalloid. ESTIMATED BLOOD LOSS: 10 mL. URINE OUTPUT: 70 mL. FINDINGS: 2 cm in diameter incisional hernia in the right lower quadrant, 5 mm umbilical hernia. COMPLICATIONS: None. INDICATIONS: The patient is a 44-year-old female who presented to clinic with a painful right lower quadrant incisional hernia. CT scan showed a fat-containing hernia in the right lower quadrant. This initially appeared to be a spigelian hernia, however, upon closer review, it appeared to be arising from a previous incision. The patient also had a very small fat-containing umbilical hernia. The hernia defect was palpable in clinic, but difficult to define. Given its location and size, the decision was made to proceed with a combined laparoscopic and open approach to repairing this. I would use her umbilical hernia defect as a port placement site and would repair it afterwards. The patient and I discussed the procedure in length including the expected perioperative course and risks including bleeding, infection, or damage to surrounding structures. She verbalized understanding and wishes to proceed. PROCEDURE IN DETAIL: The patient was brought into the OR and placed on the OR table in supine position. A time-out was completed verifying the patient's name, age, date of , allergies, and procedure to be performed. General endotracheal anesthesia was induced. A Santamaria catheter was placed. The abdomen was then prepped and draped in usual standard fashion. I anesthetized the infraumbilical fold with 0.5% Marcaine plain. The patient had a thickened scar in this area. I made an elliptical incision around the thickened scar tissue and excised it. Cautery was then used to dissect through the subcutaneous fat and scar tissue down to the level of the fascia. Once I reached the fascia, I was able to palpate the umbilical hernia defect. This hernia defect was quite small. I elevated the hernia sac and incised it sharply with the Metzenbaum scissors. Entry in the abdomen was visualized. A 5 mm trocar was placed through this defect and the abdomen insufflated. A 5 mm 30-degree scope was inserted in the abdomen. I turned my attention to the right lower quadrant. I could see that the patient had some weakness along her inguinal floor along the internal ring, but there was a 2 cm defect just medial to this. There was no evidence of any adhesions within the hernia sac. The omentum and small bowel were beneath us. With the hernia sac insufflated, I was able to then som on the patient's skin where I would need to make my incision. The abdomen was then desufflated. I turned my attention to the right lower quadrant. I anesthetized the area overlying a right lower quadrant horizontal incision with 0.5% Marcaine plain. A 15 blade was used to make a 4 cm incision in the skin. Using electrocautery, I dissected down to the level of the subcutaneous fat. Then, with a combination of cautery and blunt dissection, I was able to dissect down to the level of the hernia sac. The abdomen was insufflated, which provided better definition of the hernia sac itself. I cleared away all the overlying fat and scar tissue down to the fascia. The fascia surrounding the hernia sac was cleared away as well. I then grasped the hernia with hemostats and incised the top sharply with the Metzenbaum scissors. I then carried this opening down to the level of the fascia. The hernia sac and the surrounding tissue were then dissected away using electrocautery. The hernia defect measured [address] Soriano and I inspected the different forms of mesh that we had available. A 6 cm Ventralex patch and an 8 cm Ventralex patch were selected. We placed the 8 cm patch within the abdomen, but unfortunately, it appeared to be too big. It was removed and the 6 cm piece of mesh was placed into the abdomen. With this piece of mesh, the internal ring of the inguinal canal was covered and the mesh laid flush along the underside of the fascia. The lateral aspect of the hernia defect was adjacent to the epigastric artery and vein. Care was taken to try and avoid these structures as I secured the mesh to the overlying fascia. Interrupted 0 Ethibond sutures were placed in the 9 o'clock, 3 o'clock, and 12 o'clock position. I also placed another interrupted 0 Ethibond suture at the 2 o'clock position to help secure the mesh in this location. The hernia defect was too low to secure the mesh inferiorly, but the mesh was flush and tied against the fascia with these sutures. Photographs were taken intraoperatively. The abdomen was then allowed to desufflate under direct visualization with the camera. The scope and 5 mm trocar were then removed. I irrigated the wound in the right lower quadrant with a normal saline-Ancef solution. I then closed the fascial defect over the mesh using interrupted [id number] 0 Ethibond sutures. I then turned my attention to the 5 mm trocar site at the umbilical hernia. With the trocar removed, I could see that the hernia fascial defect was only 5 mm in size. I closed the fascia at this site with a single [id number] 0 Ethibond suture. The subcutaneous fat layer in the right lower quadrant incision was closed with multiple layers of both running and interrupted 3-0 Vicryl sutures. The skin was then closed with a running 4-0 Monocryl stitch. The umbilical wound was closed with interrupted 3-0 Vicryl sutures as well and the skin was closed with a running 4-0 Monocryl stitch. Dermabond and sterile dressings were applied. The patient was extubated and taken to PACU in stable condition. All counts were complete and correct at the end of the case. MADELINE HERNANDEZ /[id number] NADINE
== END 2020-02-20 16:22 | disposition home or self-care (01) ==
LOC: MW.SDS 07:16
PROVIDERS: ATTEND Surgery
DX: K43.2 Incisional hernia without obstruction or gangrene (principal); K42.9 Umbilical hernia without obstruction or gangrene; J45.909 Unspecified asthma, uncomplicated; E66.9 Obesity, unspecified; Z88.2 Allergy status to sulfonamides; Z88.8 Allergy status to other drugs, medicaments and biological substances; Z79.899 Other long term (current) drug therapy; Z87.891 Personal history of nicotine dependence; Z68.34 Body mass index [BMI] 34.0-34.9, adult
CPT/HCPCS: 49652; 49654; 81025; 88302; A9270; C1781; J0690; J1170; J1885; J2001; J2250; J2405; J2704; J3010; J3490; J7120

== ENCOUNTER 2021-12-17 22:10 | Emergency (ER) | payer BC ==
[2021-12-18 00:45] VITALS: BP 138/82; PULSE 83
== END 2021-12-18 00:44 | disposition home or self-care (01) ==
LOC: MW.ED 22:10
DX: S82.61XA Displaced fracture of lateral malleolus of right fibula, initial encounter for closed fracture (principal); E66.9 Obesity, unspecified; Z68.35 Body mass index [BMI] 35.0-35.9, adult; Z88.2 Allergy status to sulfonamides; W18.39XA Other fall on same level, initial encounter
CPT/HCPCS: 29515; 73600-26-RT; 73600-RT; 99283

== ENCOUNTER 2023-10-25 07:44 | Day surgery (SDC) | payer MEDICAID ==
[~2023-10-25 07:44] MED LIST changes: +Albuterol 0.083% 2.5 MG/3 ML Neb Soln NEB PRN; +HYDROmorphone 1 MG/ML Syringe IVPUSH PRN; -Lactated Ringers 1,000 ML IV SCH; +Metoclopramide 10 MG/2 ML SDV IVPUSH PRN; +Morphine 2 MG/ML SYRINGE IVPUSH PRN; +Naloxone 0.4 MG/ML SDV IVPUSH PRN; +Ondansetron 4 MG/2 ML SDV IVPUSH PRN; +Propofol 200 MG/20 ML SDV ONE; -Sodium Chloride 0.9% 10 ML SDV IV PRN; +Sodium Chloride 0.9% 20 ML SDV IV PRN; -ceFAZolin 2 GM in Premix Bag 1 BAG IV ONE; +ceFAZolin 2 GM in Sodium Chloride 0.9% 50 ML IV ONE; +droPERidol 5 MG/2 ML SDV IVPUSH PRN; +fentaNYL 250 MCG/5 ML SDV ONE; +fentaNYL 50 MCG/ML SDV IVPUSH PRN; +propofoL 50 ML ONE
[2023-10-25] MEDS ORDERED: Lidocaine 1% 20 ML MDV ONE (08:19)
[2023-10-25] MEDS ORDERED: Bupivacaine 0.5% 10 ML SDV ONE (08:19)
[2023-10-25] MEDS: Lactated Ringers 1,000 ML IV SCH (08:35)
[2023-10-25] MEDS ORDERED: Ondansetron 4 MG/2 ML SDV ONE (08:46)
[2023-10-25] MEDS ORDERED: Dexamethasone 4 MG/ML 5 ML MDV ONE (08:46)
[2023-10-25] MEDS ORDERED: ceFAZolin 2 GM Vial ONE (09:05)
[2023-10-25] MEDS ORDERED: Propofol 200 MG/20 ML SDV ONE (09:30)
[2023-10-25 14:08] VITALS: BP 115/66; PULSE 68
== END 2023-10-25 11:30 | disposition home or self-care (01) ==
LOC: MW.SDS 07:44
PROVIDERS: ATTEND Surgery
DX: L73.2 Hidradenitis suppurativa (principal); J45.909 Unspecified asthma, uncomplicated; E66.9 Obesity, unspecified; Z79.899 Other long term (current) drug therapy; Z88.2 Allergy status to sulfonamides
CPT/HCPCS: 11450; J0665; J0690; J1100; J2405; J2704; J3010; J7120; 00400; J3490

== ENCOUNTER 2023-11-08 09:28 | Day surgery (SDC) | payer MEDICAID ==
[~2023-11-08 09:28] MED LIST changes: -Albuterol 0.083% 2.5 MG/3 ML Neb Soln NEB PRN; -HYDROmorphone 1 MG/ML Syringe IVPUSH PRN; -Metoclopramide 10 MG/2 ML SDV IVPUSH PRN; -Morphine 2 MG/ML SYRINGE IVPUSH PRN; -Naloxone 0.4 MG/ML SDV IVPUSH PRN; -Ondansetron 4 MG/2 ML SDV IVPUSH PRN; -Propofol 200 MG/20 ML SDV ONE; -ceFAZolin 2 GM in Sodium Chloride 0.9% 50 ML IV ONE; -droPERidol 5 MG/2 ML SDV IVPUSH PRN; -fentaNYL 250 MCG/5 ML SDV ONE; -fentaNYL 50 MCG/ML SDV IVPUSH PRN; -propofoL 50 ML ONE
[2023-11-08] MEDS: Lactated Ringers 1,000 ML IV SCH (10:40)
[2023-11-08] MEDS ORDERED: Propofol 200 MG/20 ML SDV ONE ×3 (12:22→12:53)
[2023-11-08] MEDS ORDERED: Lidocaine 2% 5 ML SDV ONE (12:22)
[2023-11-08 13:49] VITALS: BP 125/75; PULSE 78
== END 2023-11-08 13:58 | disposition home or self-care (01) ==
LOC: MW.SDS 09:28
PROVIDERS: ATTEND Surgery
DX: Z12.11 Encounter for screening for malignant neoplasm of colon (principal); K63.5 Polyp of colon; R19.5 Other fecal abnormalities; J45.909 Unspecified asthma, uncomplicated; E66.3 Overweight; D64.9 Anemia, unspecified; Z88.2 Allergy status to sulfonamides; Z79.899 Other long term (current) drug therapy; Z87.891 Personal history of nicotine dependence; Z68.32 Body mass index [BMI] 32.0-32.9, adult
CPT/HCPCS: 45380; J2704; J7120; 00811; J3490